=== PATIENT | male | born 1940 | race Caucasian/White ===

== ENCOUNTER 2023-04-12 01:24 | Emergency (ER) | payer MEDICARE ==
[~2023-04-12] VITALS: Ht 179.3 cm; Wt 98.4 kg
== END 2023-04-12 03:07 | disposition home or self-care (01) ==
LOC: ED 01:24
DX: S51.812A Laceration without foreign body of left forearm, initial encounter (principal); W01.198A Fall on same level from slipping, tripping and stumbling with subsequent striking against other object, initial encounter; Y93.89 Activity, other specified; Y92.098 Other place in other non-institutional residence as the place of occurrence of the external cause; Y99.8 Other external cause status